=== PATIENT | female | born 2005 | race Caucasian/White ===

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

== ENCOUNTER 2024-04-17 13:01 | Outpatient (CLI) | payer OTHER, SELFPAY ==
--- NOTE | 2024-04-17 13:03 | USCV_ITS ---
Cresencio Kristin Age: 18 Gender: F : 2005 Exam Date: 04/17/2024 13:18 Ordering Phys: Félix Rodriges MD Technologist: [place] [facility] [place]: syncope BP: 118 / 68 HR: 74 Rhythm: Sinus Technical Quality: Adequate MEASUREMENTS (Male / Female) Normal Values 2D ECHO LVOT Diameter 2.0 cm LV Ejection Fraction MOD 2C 65.7 % LV Ejection Fraction 2C AL 66.0 % LA Diameter 1.9 cm RA Systolic Volume 4C AL 27.6 ml RA Systolic Volume 4C MOD 27.3 ml LA Sys Volume AL 23.1 cm cubed LA Sys Volume Index AL 12.2 cm cubed/m squared Aorta at Sinotubular Diameter 1.9 cm IVC Diameter 1.4 cm M-MODE LA Ao Ratio MM 0.8 AV Cusp Separation MM 1.9 cm DOPPLER AV Peak Velocity 112.0 cm/s LVOT Peak Velocity 107.0 cm/s AV Area Cont Eq vti 3.0 cm squared AV Area Cont Eq pk 3.0 cm squared MV Peak Velocity 111.0 cm/s MV Area PHT 4.3 cm squared Mitral E to A Ratio 1.3 TR Peak Velocity 208.0 cm/s TR Peak Gradient 17.3 mmHg Right Atrial Pressure 3.0 mmHg Pulmonary Artery Systolic Pressu 20.3 mmHg PV Peak Velocity 105.5 cm/s FINDINGS Left Ventricle Normal left ventricular size and systolic function, EF 66% . No regional wall motion abnormalities. Right Ventricle The right ventricle is normal in size and function. Right Atrium The right atrium is normal in size. Left Atrium The left atrium is normal in size. Mitral Valve No gross abnormalities noted Aortic Valve No gross abnormalities noted Tricuspid Valve Trace of tricuspid regurgitation. Estimated pulmonary artery peak systolic pressure 20 mmHg Pulmonic Valve No gross abnormalities noted Pericardium Normal pericardium without effusion. Aorta Normal ascending aorta dimension. IVC The inferior vena cava appears normal. CONCLUSIONS Normal left ventricular size and systolic function, EF 66% . No regional wall motion abnormalities. Normal cardiac chamber sizes. No significant valvular lesions Trace of tricuspid regurgitation. Estimated pulmonary artery peak systolic pressure 20 mmHgTrace of tricuspid regurgitation. There is no pericardial effusion. There are no intracardiac masses. No similar previous studies are available for comparison Dr Angie Emery MD FAC (Electronically Signed) Final Date: 19 April 2024 00:28 S
== END 2024-04-17 13:02 | disposition home or self-care (01) ==
PROVIDERS: Family Provider Family Medicine; PCP Family Medicine; Visit Provider Family Medicine
DX: R55 Syncope and collapse (principal)
CPT/HCPCS: 93306